=== PATIENT | female | born 1995 | race Caucasian/White ===

== ENCOUNTER 2018-02-26 17:38 | Emergency (ER) | payer BC ==
--- NOTE | 2018-02-26 18:56 | RAD ---
LEFT THUMB THREE VIEW 02/26/18 HISTORY: Thumb pain. Limited mobility. COMPARISON: None. FINDINGS: there is a fracture of the proximal phalanx of the thumb, spiral type, extending from the metacarpoph alangeal joint to the middle diaphysis. Distal phalanx is normal. IMPRESSION: Intra-articular fracture of the proximal phalanx of the thumb extending from the metacarpal phalangea l joint to the middle diaphysis. POS: MARYANN
[2018-02-26] MEDS ORDERED: HYDROcodone/Acetaminophen 5/325 mg Tablet ONE (18:58)
== END 2018-02-26 19:15 | disposition home or self-care (01) ==
LOC: SCSER 17:38
DX: S62.512A Displaced fracture of proximal phalanx of left thumb, initial encounter for closed fracture (principal); V43.52XA Car driver injured in collision with other type car in traffic accident, initial encounter
CPT/HCPCS: 29125

== ENCOUNTER 2018-02-28 03:54 | Emergency (ER) | payer BC | END 2018-02-28 04:29 | disposition home or self-care (01) | LOC: ERS 03:54 | DX: S62.512A Displaced fracture of proximal phalanx of left thumb, initial encounter for closed fracture (principal); V89.2XXA Person injured in unspecified motor-vehicle accident, traffic, initial encounter | CPT/HCPCS: 29125 ==

== ENCOUNTER 2025-06-26 07:33 | Day surgery (SDC) | payer BC, SELFPAY ==
[2025-06-26] MEDS ORDERED: fentaNYL PF 100 MCG/2 ML SYRINGE ONE ×2 (12:43→13:56)
[2025-06-26] MEDS ORDERED: PROPOFOL 20 ML ONE (12:43)
[2025-06-26] MEDS ORDERED: Ondansetron PF 4 MG/2 ML Vial ONE (12:44)
[2025-06-26] MEDS ORDERED: Lidocaine 1% PF 5 ML VIAL ONE (12:44)
[2025-06-26] MEDS ORDERED: SUCCINYLCHOLINE/SOD CL,ISO/PF 200 MG/10 ML SYRINGE FS ONE (12:44)
[2025-06-26] MEDS ORDERED: Bupivacaine 0.25% HCL 30 ML VIAL ONE (12:44)
[2025-06-26] MEDS ORDERED: Rocuronium Bromide 10 MG/ML (10ML VIAL) ONE (12:44)
[2025-06-26] MEDS ORDERED: SUGAMMADEX SODIUM 200 MG/2 ML VIAL ONE (13:36)
[2025-06-26] MEDS ORDERED: Ketorolac Tromethamine 30 MG (1 mL) VIAL ONE (13:56)
[2025-06-26] MEDS ORDERED: HYDROcodone/Acetaminophen 5/325 mg Tablet ONE (15:29)
== END 2025-06-26 16:00 | disposition home or self-care (01) ==
LOC: SDC/OP 07:33
PROVIDERS: ATTEND Surgery
PROC: 0DTJ4ZZ Resection of Appendix, Percutaneous Endoscopic Approach (ICD-10-PCS; principal; 2025-06-26)
DX: K35.33 Acute appendicitis with perforation, localized peritonitis, and gangrene, with abscess (principal)
CPT/HCPCS: 88304; A4649; J0169; J0665; J0694; J1885; J2250; J2405; J2704; J3010